=== PATIENT | male | born 1980 | race Caucasian/White ===

== ENCOUNTER 2019-01-09 14:15 | Emergency (ER) | payer MEDICAID ==
[~2019-01-09] VITALS: Ht 170.2 cm; Wt 70.0 kg
[~2019-01-09 14:15] MED LIST: BACTDS PO; CEPH500C PO; IBUP-1542 PO; METH500T8 PO
[2019-01-09 14:41] VITALS: Ht 170.2 cm; Wt 70.0 kg
--- NOTE | 2019-01-09 21:31 | ERD ---
ER Documentation Chief Complaint Chief Complaint cp x 1 hour. no sob. no cardiac hx HPI 38-year-old man, otherwise healthy presents with sharp nonexertional nonradiating chest pain to the left chest. He states the pain is sharp and pinpoint about the size of a fingertip intermittently for a few seconds over the last hour. He denies shortness of breath, no cough, no calf or leg swelling, no dizziness, no fevers or chills ROS All systems reviewed and are negative except as per history of present illness. Medications Home Meds Active Scripts Ibuprofen* (Motrin*) 600 Mg Tab, 600 MG PO Q8 PRN for PAIN AND/OR INFLAMMATION, #30 TAB Prov:NAA MCLAUGHLIN MD 01/09/19 Discontinued Reported Medications Cephalexin* (Cephalexin*) 500 Mg Capsule, 500 MG PO QID, CAP 04/14/15 Ibuprofen* (Ibuprofen*) 600 Mg Tablet, 600 MG PO Q8 PRN for PAIN, TAB 04/14/15 Methocarbamol* (Methocarbamol*) 500 Mg Tablet, 500 MG PO Q6, TAB 04/14/15 Discontinued Scripts Sulfamethoxazole-Trimethoprim* (Bactrim* DS) 800-160 Mg Tab, 1 TAB PO BID for 10 Days, TAB Prov:FITO LEARY MD 04/14/15 Allergies Allergies: Coded Allergies: No Known Allergy (Unverified , 01/09/19) PMhx/Soc History of Surgery: No Anesthesia Reaction: No Hx Neurological Disorder: No Hx Respiratory Disorders: No Hx Cardiac Disorders: No Hx Psychiatric Problems: No Hx Miscellaneous Medical Probl: No Hx Alcohol Use: No Hx Substance Use: No Hx Tobacco Use: No Smoking Status: Never smoker FmHx Family History: No diabetes Physical Exam Vitals Vital Signs Date Temp Pulse Resp B/P (MAP) Pulse Ox O2 O2 Flow FiO2 Time Delivery Rate 01/09/19 64 18 108/83 100 Room Air 21:32 (91) 01/09/19 98.2 70 17 129/76 99 14:41 (93) Physical Exam GENERAL: Well-developed, well-nourished, well-hydrated, in no apparent distress, looks nontoxic in appearance HEENT: Moist mucous membranes, pink conjunctiva, no cervical spine tenderness or step-off deformities, no goiter, no jaundice or icterus, extraocular movements intact without pain. No submandibular induration, and no pharyngeal erythema NEURO: Alert and oriented 3, cranial nerves II through XII intact bilaterally, pupils equal round reactive to light, no focal deficits or facial asymmetry, sensation intact distally Strength 5/5 in upper and lower extremities bilaterally CARDIAC: Regular rate and rhythm, no murmurs rubs or gallops LUNGS: Clear bilaterally no wheezing crackles or stridor ABDOMEN: Soft nontender, no guarding, no rigidity, no rebound, no psoas sign no obturator sign. Normoactive bowel sounds SKIN: Warm and dry to touch, no abrasions, contusions, or hematomas, no lacerations, no ecchymosis, no target lesions, and without ulcers EXTREMITIES: No clubbing cyanosis or edema, calves are bilaterally symmetrical, no Homans sign, no popliteal cord sign. Distal pulses equal and bilateral PSYCH: Normal affect without agitation or irritability Result Diagram: 01/09/19212401/09/192124 Results 24 hrs Laboratory Tests Test 01/09/19 21:25 White Blood Count 8.6 10^3/ul Red Blood Count 4.58 10^6/ul Hemoglobin 13.7 g/dl Hematocrit 42.3 % Mean Corpuscular Volume 92.4 fl Mean Corpuscular Hemoglobin 29.9 pg Mean Corpuscular Hemoglobin Concent 32.4 g/dl Red Cell Distribution Width 13.3 % Platelet Count 324 10^3/UL Mean Platelet Volume 10.6 fl Immature Granulocytes % 0.200 % Neutrophils % 39.5 % Lymphocytes % 44.8 % Monocytes % 9.2 % Eosinophils % 5.5 % Basophils % 0.8 % Nucleated Red Blood Cells % 0.0 /100WBC Immature Granulocytes # 0.020 10^3/ul Neutrophils # 3.4 10^3/ul Lymphocytes # 3.9 10^3/ul Monocytes # 0.8 10^3/ul Eosinophils # 0.5 10^3/ul Basophils # 0.1 10^3/ul Nucleated Red Blood Cells # 0.0 10^3/ul Sodium Level 142 mmol/L Potassium Level 4.3 mmol/L Chloride Level 104 mmol/L Carbon Dioxide Level 31 mmol/L Anion Gap 7 Blood Urea Nitrogen 15 mg/dl Creatinine 0.81 mg/dl Est Glomerular Filtrat Rate mL/min > 60 mL/min Glucose Level 102 mg/dl Calcium Level 9.5 mg/dl Total Bilirubin 0.6 mg/dl Direct Bilirubin 0.00 mg/dl Indirect Bilirubin 0.6 mg/dl Aspartate Amino Transf (AST/SGOT) 49 IU/L Alanine Aminotransferase (ALT/SGPT) 22 IU/L Alkaline Phosphatase 49 IU/L Troponin I < 0.012 ng/ml Total Protein 8.3 g/dl Albumin 4.5 g/dl Globulin 3.80 g/dl Albumin/Globulin Ratio 1.18 Lipase 74 U/L Current Medications Medications Dose Sig/Melba Start Time Status Last (Trade) Ordered Route PRN Stop Time Admin Dose Reason Admin Sodium 500 ml @ Q1H STAT 01/09/19 DC 01/09/19 Chloride 500 mls/hr IV 21:59 01/09/19 22:10 22:58 Ketorolac 15 mg ONCE STAT 01/09/19 DC 01/09/19 Tromethamine IV 21:59 01/09/19 22:09 (Toradol) 22:00 Alprazolam 0.5 mg ONCE ONCE 01/09/19 DC 01/09/19 (Xanax) PO 22:00 01/09/19 22:09 22:01 Procedures/MDM IV line was established patient was placed on patient monitor rhythm strip revealed a sinus rhythm at about 70 bpm with upright P and T waves. Patient was afebrile EKG performed, read by me: 72 bpm, normal sinus rhythm, normal axis, no acute ST segment changes, narrow QRS complex, with good R-wave progression in precordial leads. I administered 500 cc normal saline IV, Toradol 15 mg IV, and alprazolam 0.5 mg p.o. x1 CBC and electrolytes are normal, liver function tests were normal, troponin was negative differential diagnoses considered, included but not limited to acute coronary syndrome, pulmonary embolism, aortic dissection, abdominal aortic aneurysm, sepsis, stroke, meningitis, encephalitis, pneumonia, appendicitis, cholecystitis, bowel obstruction, pyelonephritis, nephrolithiasis, cystitis, as well as metabolic, hematologic, and electrolyte abnormalities. As well as abscess, cellulitis, fractures, and dislocations. Patient feels much better at this time, and vital signs are normal, symptoms have improved. I did give strict instructions to return to the ED if symptoms continue or worsen, patient will otherwise follow-up with primary care physician. Patient understood instructions and agreed to plan. Disclaimer: Inadvertent spelling and grammatical errors are likely due to EHR/dictation software use and do not reflect on the overall quality of patient care. Also, please note that the electronic time recorded on this note does not necessarily reflect the actual time of the patient encounter. Departure Diagnosis: Primary Impression: Chest pain Chest pain type: unspecified Qualified Codes: R07.9 - Chest pain, unspecified Condition: Good NAA MCLAUGHLIN MD Jan 09, 2019 21:31
[2019-01-09] MEDS ORDERED: SOD CHLORIDE 0.9% 500 ML IV STA (21:59)
[2019-01-09] MEDS ORDERED: KETOROLAC 15 MG INJ IV STA (21:59)
[2019-01-09] MEDS ORDERED: ALPRAZOLAM 0.25 MG TAB PO ONE (22:00)
[2019-01-09] MEDS ORDERED: IBUP-1542 PO (23:00)
[2019-01-10 00:01] VITALS: BP 100/67; PULSE 81; RESP 18
== END 2019-01-10 00:05 | disposition home or self-care (01) ==
LOC: E/R 14:15
DX: R07.9 Chest pain, unspecified (principal)
CPT/HCPCS: 36415; 71045; 80053; 83690; 84484; 85025; 93005; 96374; J1885; J7040; Z7502; Z7610